=== PATIENT | male | born 1970 | race Two or more races ===

== ENCOUNTER 2024-02-11 08:55 | Day surgery (SDC) | payer BC ==
[2024-02-10 13:37] LABS: BASOPHILS % (AUTO) 0.8 % (0-1); EOSINOPHILS # (AUTO) 0.1 X10'3 (0-0.9); EOSINOPHILS % (AUTO) 2.5 % (0-6); HEMOGLOBIN 11.8 g/dl (14.0-17.9); LYMPHOCYTES # (AUTO) 1.5 X10'3 (1.1-4.8); LYMPHOCYTES % (AUTO) 26.8 % (21-51); MEAN CORPUSCULAR HGB CONC 32.8 g/dL (33.0-36.5); MEAN CORPUSCULAR VOLUME 94.5 FL (78-98); MEAN PLATELET VOLUME 9.8 FL (7.4-10.4); MONOCYTES # (AUTO) 0.7 X10'3 (0-0.9); MONOCYTES % (AUTO) 12.1 % (2-12); NEUTROPHILS # (AUTO) 3.3 X10'3 (1.8-7.7); NEUTROPHILS % (AUTO) 57.8 % (42-75); PLATELET COUNT 99 X10'3 (140-440); RED BLOOD COUNT 3.81 X10'6 (4.70-6.10); RED CELL DISTRIBUTION WIDTH 19.8 % (11.5-14.5); WHITE BLOOD COUNT 5.7 X10'3 (4.5-11.0)
[2024-02-10 13:48] LABS: ALBUMIN 3.4 G/DL (3.4-5.0); ANION GAP 7 (8-16); BLOOD UREA NITROGEN 24 MG/DL (7-18); BUN/CREATININE RATIO 4.7 (10.0-20.0); CALCIUM 9.9 MG/DL (8.5-10.1); CHLORIDE 101 MMOL/L (99-107); CREATININE 5.06 MG/DL (0.60-1.10); GLUCOSE 94 MG/DL (70-104); POTASSIUM 4.1 MMOL/L (3.5-5.1); SODIUM 140 MMOL/L (135-145); TOTAL CARBON DIOXIDE 31.6 MMOL/L (24-32); eGFR 12 ML/MIN
[2024-02-10 13:52] LABS: APTT 28 SECONDS (22-32); INR 1.1 INR; PROTHROMBIN TIME 11.7 SECONDS (9.0-12.0)
[2024-02-10 13:56] LABS: ANISOCYTOSIS 2+; LARGE PLATELETS FEW; PLATELET ESTIMATE DECREASED
[2024-02-11] VITALS (9 sets, daily range): BP systolic 148–179; BP diastolic 71–96; PULSE 66–71; RESP 13–17; O2SAT 93–99
[~2024-02-11] VITALS: Ht 162.6 cm; Wt 94.1 kg
[~2024-02-11 08:55] MED LIST: ATOR20TA66 PO; HYDR-3964 PO; LIDOcaine 1% (10mg/ml) 2ml vial ONE; LOSA50TA64 PO; SEVE800T8 PO; fentaNYL/PF 50MCG/1 ML 2ML syringe ONE; heparin 1,000unit/ml 10ml vial 10 ML ONE; iohexol 350 MG/ML 50ML vial IV ONE; iohexol 350MG/ML 100ml bottle IV ONE; midazolam 1 mg/ML 2ml injection ONE; verapamil 2.5 mg/ml inj IV ONE
[2024-02-11] MEDS: sodium bicarbonate 1meq/ml syr 150 ML in dextrose 5%-water 1,000 ML IV SCH (09:37)
[2024-02-11] MEDS: acetylcysteine 200 MG/ml 4ml vial PO PRN (09:37)
[2024-02-11] MEDS: LORazepam 0.5 MG tablet PO PRN (09:37)
[2024-02-11] MEDS: normal saline 1,000 ML IV SCH (09:37)
[2024-02-11] MEDS: diphenhydrAMINE 25mg capsule PO PRN (09:37)
[2024-02-11] MEDS ORDERED: CARV12.545 PO (09:42)
[2024-02-11] MEDS ORDERED: DOXA2TAB92 PO (09:42)
[2024-02-11] MEDS ORDERED: AMLO10TA13 PO (09:42)
[2024-02-11] MEDS ORDERED: CINA90TA4 PO (09:42)
[2024-02-11] MEDS ORDERED: ROSU40TA71 PO (09:45)
[2024-02-11] MEDS ORDERED: FURO-149 PO (09:47)
[2024-02-11] MEDS ORDERED: ACET600C5 PO (09:47)
[2024-02-11] MEDS ORDERED: nitroGLYCERIN 500mcg/5mL D5W 5 ML IV ONE (11:20)
[2024-02-11] MEDS ORDERED: fentaNYL/PF 50MCG/1 ML 2ML syringe ONE (11:20)
[2024-02-11] MEDS ORDERED: midazolam 1 mg/ML 2ml injection ONE (11:20)
[2024-02-11] MEDS ORDERED: LIDOcaine 1% 30ml preserv. free vial ONE (11:55)
[2024-02-11] MEDS ORDERED: iohexol 350 MG/ML 50ML vial IV ONE (12:08)
[2024-02-11] MEDS ORDERED: iohexol 350MG/ML 100ml bottle IV ONE (12:15)
[2024-02-11 12:46] LABS: ISTAT HGB ART 10.9 g/dl (14.0-17.9); ISTAT Hct ART 32 %PCV (42-52); ISTAT O2 SATURATION ARTERIAL 96 % (95-98); ISTAT SOURCE ART
[2024-02-16 06:22] LABS: ISTAT HGB MIX 11.9 g/dl (14.0-17.9); ISTAT Hct MIX 35 %PCV (42-52); ISTAT O2 SATURATION MIX VENOUS 70 % (60-80); ISTAT SOURCE VEN
== END 2024-02-11 17:00 | disposition home or self-care (01) ==
LOC: SSTAY O 08:55
PROVIDERS: ATTEND Internal Medicine Cardiovascular Disease
DX: I42.0 Dilated cardiomyopathy (principal); I44.4 Left anterior fascicular block; I25.2 Old myocardial infarction; I13.11 Hypertensive heart and chronic kidney disease without heart failure, with stage 5 chronic kidney disease, or end stage renal disease; E11.22 Type 2 diabetes mellitus with diabetic chronic kidney disease; N18.6 End stage renal disease; E11.21 Type 2 diabetes mellitus with diabetic nephropathy; E66.3 Overweight; E78.5 Hyperlipidemia, unspecified; G47.30 Sleep apnea, unspecified; Z79.899 Other long term (current) drug therapy; Z99.2 Dependence on renal dialysis; Z98.890 Other specified postprocedural states; Z68.35 Body mass index [BMI] 35.0-35.9, adult; Z88.1 Allergy status to other antibiotic agents; Z83.3 Family history of diabetes mellitus; Z82.49 Family history of ischemic heart disease and other diseases of the circulatory system
CPT/HCPCS: 36415; 76937; 80048; 82803; 85014; 85025; 85610; 85730; 92920; 93005; 93460; 99152; 99153; J1644; J2250; J3010; J3490; J7030; J7070; Q0163; Q9967; 85008; A4615; A6258; A6402; A6449; C1725; C1751; C1769; C1894; C9607